=== PATIENT | male | born 1995 | race Caucasian/White ===

== ENCOUNTER 2016-10-29 12:31 | Emergency (ER) | payer SELFPAY ==
[~2016-10-29] VITALS: Ht 167.6 cm; Wt 72.0 kg
[2016-10-29 12:38] VITALS: Ht 167.6 cm; Wt 72.0 kg
[2016-10-29] MEDS ORDERED: CLOT30CR24 TOP (14:03)
--- NOTE | 2016-10-29 14:09 | ERD ---
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 For approximately 1 year the patient has described itching and redness and lesions to the glans penis. He is uncircumcised. He denies risk of STD. Last intercourse was 6 months ago. No dysuria or drainage, no testicular pain. He has not been evaluated for this in the past. He denies history of diabetes. ROS All systems reviewed and are negative except as per history of present illness. Medications Home Meds Active Scripts Clotrimazole* (Clotrimazole* AF) 1% - 30 Gm Cream.gm., 1 APPLIC TOP BID for 28 Days, TUB Prov:MAYA THOMASON MD 10/29/16 PMhx/Soc Medical and Surgical Hx: pt denies Medical Hx, pt denies Surgical Hx History of Surgery: No Anesthesia Reaction: No Hx Neurological Disorder: No Hx Respiratory Disorders: No Hx Cardiac Disorders: No Hx Psychiatric Problems: No Hx Miscellaneous Medical Probl: No Hx Alcohol Use: No Hx Substance Use: No Hx Tobacco Use: No Smoking Status: Never smoker FmHx Family History: No diabetes Physical Exam Vitals Vital Signs Date Time Temp Pulse Resp B/P Pulse Ox O2 Delivery O2 Flow Rate FiO2 10/29/16 12:38 98.2 62 18 110/67 99 Physical Exam General: Well developed, well nourished, no acute distress Head: Normocephalic, atraumatic. Eyes: EOM intact ENT: Moist mucous membranes Neck: Full ROM Respiratory: No respiratory distress Cardiovascular: Good capillary refil Abdominal: Nondistended : [employer] exam, foreskin reduced, evidence of plaque-like erythematous lesions on the glans penis and skin spaces, no drainage, descended testicles bilateral without focal tenderness no lymphadenopathy no ulcerations, foreskin left in reduced position MSK: No edema, no unilateral swelling, 5/5 strength Neurologic: Alert and oriented, moving all extremities, normal speech, steady gait Skin: No rash Psych: Normal mood Procedures/MDM The patient's clinical exam is very consistent with candidal balanitis. No signs or symptoms concerning for STD, no high risk criteria. The patient will benefit from 4 weeks of topical antifungal agent, outpatient dermatology follow- up. I discussed return precautions the patient states understanding. I discussed hygiene. No signs or symptoms concerning for phimosis or paraphimosis, again low concern for STD. We discussed follow up with the patient's primary care doctor within 24 to 48 hours as needed. We also discussed return to the emergency room for worsening symptoms or worsening condition. Discharge Medications: Clotrimazole Departure Diagnosis: Primary Impression: Candidal balanitis Condition: Stable Patient Instructions: Baljeff, Elidia Skin Infection (Adult) Referrals: EMILY TALBOT Additional Instructions: Llame al doctor belen banks (Referral Sources) MAANA y stefano carly MIKAYLA PARA DENTRO DE CARLY SEMANA. Dgale a la secretaria que nosotros le instruimos hacer esta mikayla.Avise o llame si warren condicin se empeora antes de la mikayla. MAYA THOMASON MD Oct 29, 2016 14:09
== END 2016-10-29 14:43 | disposition home or self-care (01) ==
LOC: FTE 12:31
DX: B37.42 Candidal balanitis (principal)
CPT/HCPCS: 99283